=== PATIENT | female | born 1995 | race Caucasian/White ===

== ENCOUNTER 2021-07-04 18:24 | Emergency (ER) | payer SELFPAY ==
[~2021-07-04] VITALS: Ht 165.1 cm; Wt 54.4 kg
[2021-07-04 18:36] VITALS: BP 116/70
--- NOTE | 2021-07-04 18:40 | NUR ---
Patient came in to the er c/o left upper arm pain from control implant. On room air, breathing evenly and unlabored. Kept comfortable, will continue to monitor accordingly.
--- NOTE | 2021-07-04 18:41 | NUR ---
TO ER BED 4 FOR MD [id number]
== END 2021-07-04 18:55 | disposition home or self-care (01) ==
LOC: ER 18:24
DX: M79.602 Pain in left arm (principal); Z30.46 Encounter for surveillance of implantable subdermal contraceptive